=== PATIENT | male | born 1975 | race Caucasian/White ===

== ENCOUNTER 2017-05-12 10:55 | Emergency (ER) | payer OTHER ==
[~2017-05-12] VITALS: Ht 188 cm; Wt 103.7 kg
[2017-05-12 11:28] VITALS: BP 120/84
== END 2017-05-12 13:08 | disposition home or self-care (01) ==
LOC: EME 10:55
DX: M54.5 Low back pain (principal); F17.200 Nicotine dependence, unspecified, uncomplicated
CPT/HCPCS: 99281; 99283